=== PATIENT | female | born 1975 | race Two or more races ===

== ENCOUNTER 2024-05-20 13:51 | Outpatient (AMB) | payer MEDICAID, SELFPAY ==
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
[2024-05-20 14:23] VITALS: BP 159/101; PULSE 112; RESP 18; TEMP 36.4; O2SAT 99; BMI 31.2
== END 2024-05-20 14:37 | disposition home or self-care (01) ==
PROVIDERS: PCP Physician Assistant; Referring Provider Physician Assistant; Supervising Provider Orthopaedic Surgery Adult Reconstructive Orthopaedic Surgery; Visit Provider Orthopaedic Surgery Adult Reconstructive Orthopaedic Surgery
DX: M25.562 Pain in left knee (principal); G89.29 Other chronic pain
CPT/HCPCS: 99204; G0463

== ENCOUNTER 2024-06-07 14:34 | Outpatient (AMB) | payer MEDICAID, SELFPAY ==
[2024-06-07 14:51] VITALS: BP 166/103; PULSE 109; RESP 20; TEMP 36.7; O2SAT 99; BMI 31.0
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
== END 2024-06-07 15:10 | disposition home or self-care (01) ==
LOC: HODSRG 14:34
PROVIDERS: PCP Physician Assistant; Referring Provider Physician Assistant; Supervising Provider Orthopaedic Surgery Adult Reconstructive Orthopaedic Surgery; Visit Provider Orthopaedic Surgery Adult Reconstructive Orthopaedic Surgery
DX: M25.562 Pain in left knee (principal); S89.90XD Unspecified injury of unspecified lower leg, subsequent encounter; V49.9XXD Car occupant (driver) (passenger) injured in unspecified traffic accident, subsequent encounter
CPT/HCPCS: 20610; 99213; J3301; J3490; G0463